=== PATIENT | female | born 1945 | race American Indian/Alaskan Native ===

== ENCOUNTER 2019-05-20 19:17 | Emergency (ER) | payer MEDICARE ==
--- NOTE | 2019-05-20 19:32 | Event Note ---
ED Screening Note ED Screening Note: dizziness sensation of room spinning began two days ago no headache no vision changes no chest pain +sob has not been to a doctor in 20 years no known PMHX no allergies to meds This initial assessment/diagnostic orders/clinical plan/treatment(s) is/are subject to change based on patients health status, clinical progression and re- assessment by fellow clinical providers in the ED. Further treatment and workup at subsequent clinical providers discretion. Patient/guardian urged not to elope from the ED as their condition may be serious if not clinically assessed and managed. Initial orders include:
--- NOTE | 2019-05-20 20:21 | XRay Report ---
CHEST 2 VIEWS INDICATION: SOB. COMPARISON: None. FINDINGS: Support devices: None. Heart: Within normal limits. Lungs/Pleura: No acute air space or interstitial disease. Mild apical thickening left greater than ri ght. No significant pleural effusion. IMPRESSION: No acute findings. Signer Name: Manuel Shultz MD Signed: 05/20/2019 8:17 PM Workstation Name: [id number]
--- NOTE | 2019-05-20 20:29 | Cat Scan Report ---
CT head/brain wo con INDICATION / CLINICAL INFORMATION: dizziness, elevated blood pressure. TECHNIQUE: All CT scans at this location are performed using CT dose reduction for ALARA by means of automated e xposure control. COMPARISON: None available. FINDINGS: No intracranial hemorrhage or abnormal extra-axial fluid collection. The ventricular system and basilar cisterns are normal. No evidence of territorial infarction. Visualized sinuses and osseous structures are normal. IMPRESSION: 1. No acute intracranial abnormality. Signer Name: Huber Tolentino MD Signed: 05/20/2019 8:25 PM Workstation Name: [id number]
[2019-05-20 20:39] LABS: Basophils % (Auto) 0.4 % (0.0-1.8); Eosinophils % (Auto) 0.3 % (0.0-4.3); Hematocrit 36.7 % (30.3-42.9); Hemoglobin 12.2 gm/dl (10.1-14.3); Lymphocytes # (Auto) 1.8 K/mm3 (1.2-5.4); Mean Corpuscular HGB Conc 33 % (30-34); Mean Corpuscular Volume 94 fl (79-97); Monocytes # (Auto) 0.5 K/mm3 (0.0-0.8); Monocytes % (Auto) 5.9 % (0.0-7.3); Platelet Count 252 K/mm3 (140-440); Red Blood Count 3.92 M/mm3 (3.65-5.03)
[2019-05-20 21:04] LABS: Alanine Aminotransferase 7 units/L (7-56); Albumin 4.4 g/dL (3.9-5); BUN/Creatinine Ratio 17; Blood Urea Nitrogen 12 mg/dL (7-17); Calcium 9.5 mg/dL (8.4-10.2); Hemolysis Index 10
[2019-05-20 21:45] LABS: Bilirubin,Urine NEG (Negative); Blood,Urine NEG (Negative); Color,Urine Colorless (Yellow); Mucus,Urine FEW /HPF; Protein,Urine <15 mg/dL mg/dL (Negative); RBC,Urine < 1.0 /HPF (0.0-6.0); Urobilinogen,Urine < 2.0 mg/dL (<2.0); WBC,Urine < 1.0 /HPF (0.0-6.0)
[2019-05-21] MEDS ORDERED: cloNIDine 0.2 MG TAB PO ONE (00:26)
--- NOTE | 2019-05-21 00:27 | Emergency Department Report ---
HPI - General Chief Complaint: High BP Time Seen by Provider: 05/20/19 19:30 - HPI HPI: Room 19 The patient is a 73-year-old female presenting with a chief complaint of dizziness. The patient states for the past 2-3 days she's had intermittent dizziness and shortness of breath feeling as though she was going to pass out. Patient denies headache chest pain or nausea/vomiting. Patient states she was never given a diagnosis of hypertension but when EMS was called she was told she had a systolic blood pressure 234. Patient now complains of feeling tired. Location: [See above] Duration: [See above] Quality: [See above] Severity: [See above] Timing: [See above] Context: [See above] Modifying factors: [See above] Associated signs and symptoms: [see above] ED Past Medical Hx - Past Medical History Previous Medical History?: No - Surgical History Additional Surgical History: Bilateral tubal ligation - Family History Family history: no significant - Social History Smoking Status: Never Smoker Substance Use Type: None - Medications Home Medications: Home Medications Medication Instructions Recorded Confirmed Last Taken Type amLODIPine 5 mg PO DAILY #30 tab 05/21/19 Unknown Rx ED Review of Systems ROS: Stated complaint: HBP Other details as noted in HPI Constitutional: no symptoms reported Eyes: denies: eye pain ENT: denies: throat pain Respiratory: shortness of breath Cardiovascular: denies: chest pain Endocrine: no symptoms reported Gastrointestinal: denies: nausea, vomiting Genitourinary: denies: dysuria Musculoskeletal: denies: back pain Neurological: denies: headache Physical Exam - Physical Exam Vital Signs: Vital Signs 05/20/19 05/20/19 19:29 19:38 Temperature 98.6 F 98.6 F Pulse Rate 78 79 Respiratory 18 18 Rate Blood Pressure 210/82 188/99 O2 Sat by Pulse 100 100 Oximetry Vital Signs 05/20/19 05/20/19 05/21/19 19:29 19:38 00:26 Temperature 98.6 F 98.6 F Pulse Rate 78 79 55 L Respiratory 18 18 18 Rate Blood Pressure 210/82 188/99 Blood Pressure 187/73 [Left] O2 Sat by Pulse 100 100 99 Oximetry 05/21/19 05/21/19 00:39 01:36 Temperature Pulse Rate 55 L 55 L Respiratory 16 Rate Blood Pressure 187/93 Blood Pressure 161/67 [Left] O2 Sat by Pulse 97 Oximetry Physical Exam: GENERAL: The patient is well-developed well-nourished female lying on stretcher not appearing to be in acute distress. [] HEENT: Normocephalic. Atraumatic. Extraocular motions are intact. Patient has moist mucous membranes. NECK: Supple. Trachea midline CHEST/LUNGS: Clear to auscultation. There is no respiratory distress noted. HEART/CARDIOVASCULAR: Regular. There is no tachycardia. There is no gallop rub or murmur. ABDOMEN: Abdomen is soft, nontender. Patient has normal bowel sounds. There is no abdominal distention. SKIN: There is no rash. There is no edema. There is no diaphoresis. NEURO: The patient is awake, alert, and oriented. The patient is cooperative. The patient has no focal neurologic deficits. The patient has normal speech. Cranial nerves II through XII grossly intact, no drift MUSCULOSKELETAL: There is no evidence of acute injury. ED Course Vital Signs 05/20/19 05/20/19 19:29 19:38 Temperature 98.6 F 98.6 F Pulse Rate 78 79 Respiratory 18 18 Rate Blood Pressure 210/82 188/99 O2 Sat by Pulse 100 100 Oximetry ED Medical Decision Making - Lab Data Result diagrams: 05/20/19 20:28 05/20/19 20:28 Laboratory Tests 05/20/19 05/20/19 05/20/19 20:28 20:28 21:10 WBC 8.4 RBC 3.92 Hgb 12.2 Hct 36.7 MCV 94 MCH 31 MCHC 33 RDW 13.0 L Plt Count 252 Lymph % (Auto) 22.0 [place] % (Auto) 5.9 Eos % (Auto) 0.3 Baso % (Auto) 0.4 Lymph # 1.8 [place] # 0.5 Eos # 0.0 Baso # 0.0 Seg Neutrophils % 71.4 H Seg Neutrophils # 6.0 Sodium 139 Potassium 4.3 Chloride 100.7 Carbon Dioxide 23 Anion Gap 20 BUN 12 Creatinine 0.7 Estimated GFR > 60 BUN/Creatinine Ratio 17 Glucose 133 H Calcium 9.5 Total Bilirubin 0.20 AST 23 ALT 7 Alkaline Phosphatase 89 Troponin T < 0.010 Total Protein 8.3 H Albumin 4.4 Albumin/Globulin Ratio 1.1 Urine Color Colorless Urine Turbidity Clear Urine pH 7.0 Ur Specific Chana 1.003 Urine Protein <15 mg/dl Urine Glucose (UA) Neg Urine Ketones Neg Urine Blood Neg Urine Nitrite Neg Urine Bilirubin Neg Urine Urobilinogen < 2.0 Ur Leukocyte Esterase Neg Urine WBC (Auto) < 1.0 Urine RBC (Auto) < 1.0 U Epithel Cells (Auto) < 1.0 Urine Mucus Few - EKG Data -: EKG Interpreted by Me EKG shows normal: sinus rhythm Rate: bradycardia (51 bpm) - EKG Data When compared to previous EKG there are: previous EKG unavailable Interpretation: other (no ischemic changes seen) - Radiology Data Radiology results: report reviewed (CT head), image reviewed (CT head) interpreted by me: Chest x-ray-no focal infiltrates, no pneumothorax [address] [address] Cat Scan Report Signed Patient: GALDINO ODONNELL MR#: [id number] 19 : 1945 Acct:[id number] Age/Sex: 73 / F ADM Date: 05/20/19 Loc: ED Attending Dr: Ordering Physician: CHINO MILLER Date of Service: 05/20/19 Procedure(s): CT head/brain wo con Accession Number(s): [id number] cc: CHINO MILLER CT head/brain wo con INDICATION / CLINICAL INFORMATION: dizziness, elevated blood pressure. TECHNIQUE: All CT scans at this location are performed using CT dose reduction for ALARA by means of automated exposure control. COMPARISON: None available. FINDINGS: No intracranial hemorrhage or abnormal extra-axial fluid collection. The ventricular system and basilar cisterns are normal. No evidence of territorial infarction. Visualized sinuses and osseous structures are normal. IMPRESSION: 1. No acute intracranial abnormality. Signer Name: Huber Tolentino MD Signed: 05/20/2019 8:25 PM Workstation Name: [id number] Transcribed By: ERWIN Celeste ibeth By: Huber Tolentino MD Electronically Authenticated By: Huber Tolentino MD Signed Date/Time: 05/20/192024 DD/ 23 TD/TT: [address] [address] XRay Report Signed Patient: GALDINO ODONNELL MR#: [id number] [birth year] : 1945 Acct:[id number] Age/Sex: 73 / F ADM Date: 05/20/19 Loc: ED Attending Dr: Ordering Physician: CHINO MILLER Date of Service: 05/20/19 Procedure(s): XR chest routine 2V Accession Number(s): [id number] cc: CHINO MILLER Fluoro Time In Minutes: CHEST 2 VIEWS INDICATION: SOB. COMPARISON: None. FINDINGS: Support devices: None. Heart: Within normal limits. Lungs/Pleura: No acute air space or interstitial disease. Mild apical thickening left greater than right. No significant pleural effusion. IMPRESSION: No acute findings. Signer Name: Manuel Shultz MD Signed: 05/20/2019 8:17 PM Workstation Name: [id number] Transcribed By: ES Dictated By: Manuel Shultz MD Electronically Authenticated By: Manuel Shultz MD Signed Date/Time: 05/20/192016 DD/ 15 TD/TT: - Differential Diagnosis hypertensive urgency, ICH, ACS, Critical care attestation.: If time is entered above; I have spent that time in minutes in the direct care of this critically ill patient, excluding procedure time. ED Disposition Clinical Impression: Hypertension, Hypertensive urgency Disposition: DC-01 TO HOME OR SELFCARE Is pt being admited?: No Does the pt Need Aspirin: No Condition: Stable Instructions: Hypertension (ED) Additional Instructions: Return to the emergency department should you develop worsening symptoms, inability to tolerate food or liquids, high fever or any other concerns Prescriptions: amLODIPine 5 mg PO DAILY #30 tab Referrals: PRIMARY CAREMD [Primary Care Provider] - 3-5 Days Time of Disposition: 02:15
[2019-05-21 01:36] VITALS: BP 161/67
== END 2019-05-21 02:52 | disposition home or self-care (01) ==
LOC: ED 19:17
DX: I10 Essential (primary) hypertension (principal); I16.0 Hypertensive urgency; Z98.51 Tubal ligation status; Z79.899 Other long term (current) drug therapy; Z88.8 Allergy status to other drugs, medicaments and biological substances
CPT/HCPCS: 36415; 70450; 71046; 80053; 81001; 84484; 85025; 93005; 93010